=== PATIENT | female | born 1940 | race Caucasian/White ===

== ENCOUNTER 2017-07-03 21:16 | Emergency (ER) | payer OTHER ==
[~2017-07-03 21:16] MED LIST: ASPIR 8181 MG PO; BACTRIM1 TAB PO; BENAZEPRIL HYDR20 M1 PO; CIPRO500 MG PO; COLACE100 MG PO; FAMOTIDINE20 MG PO; FERROUS SULFAT325 M2 PO; FLA500 PO; FOLIC ACID1 MG PO; LAC PO; LAC30L PO; LASIX20 MG PO; OYSCO 500 + D 51 TAB PO; PRI20 PO; PROVENTIL0.09 MG/A1 INH; QVAR0.04 MG/Ac IH; TRE400 PO
[2017-07-03 22:29] LABS: CARBON DIOXIDE 28.9 mmol/L (21-32); CHLORIDE SERUM 104 mmol/L (98-107); CREATININE SERUM 0.9 mg/dL (0.6-1.0); GLUCOSE SERUM 111 mg/dL (74-106); POTASSIUM SERUM 4.1 mmol/L (3.5-5.1); SODIUM SERUM 140 mmol/L (136-145)
[2017-07-03 22:31] LABS: PLATELET COUNT 184 x10^3mcL (130-400)
[2017-07-03 22:34] LABS: RED CELL DISTRIBUTION WIDTH 16.3 % (11.5-14.5)
[2017-07-03 23:06] LABS: BAND NEUTROPHIL 1 % (0-10); MONOCYTE 4 % (0-7); SEGMENTED NEUTROPHILS 39 % (37-75)
[2017-07-03 23:10] LABS: PLATELET MORPHOLOGY FEW LARGE PLATELETS; rbc morphology (normal/abnorm) ABNORMAL (NORMAL)
[2017-07-04 01:03] VITALS: BP 141/71
== END 2017-07-04 00:45 | disposition home or self-care (01) ==
LOC: ED 21:16
PROVIDERS: Emergency Medicine Emergency Medical Services
DX: M17.12 Unilateral primary osteoarthritis, left knee (principal); I87.2 Venous insufficiency (chronic) (peripheral); I10 Essential (primary) hypertension; E11.9 Type 2 diabetes mellitus without complications; Z79.84 Long term (current) use of oral hypoglycemic drugs
CPT/HCPCS: 36415; Q0092

== ENCOUNTER 2018-05-25 22:10 | Emergency (ER) | payer OTHER ==
[~2018-05-25] VITALS: Ht 152.4 cm; Wt 73.0 kg
[2018-05-25 22:15] VITALS: Ht 152.4 cm; Wt 73.0 kg
[2018-05-26 00:34] VITALS: BP 132/52
== END 2018-05-26 00:34 | disposition home or self-care (01) ==
LOC: ED 22:10
DX: S76.012A Strain of muscle, fascia and tendon of left hip, initial encounter (principal); M25.521 Pain in right elbow; W01.0XXA Fall on same level from slipping, tripping and stumbling without subsequent striking against object, initial encounter; Y93.89 Activity, other specified; Y92.89 Other specified places as the place of occurrence of the external cause; Y99.8 Other external cause status

== ENCOUNTER 2019-02-17 19:03 | Emergency (ER) | payer MEDICARE, OTHER ==
[~2019-02-17] VITALS: Ht 152.4 cm; Wt 68.0 kg
[2019-02-17 19:08] VITALS: Ht 152.4 cm; Wt 68.0 kg
[2019-02-17 20:44] LABS: BASOPHIL % 0.5 % (0-2); PLATELET COUNT 179 x10^3mcL (130-400)
[2019-02-17 20:52] LABS: CALCIUM 9.7 mg/dL (8.5-10.1); CARBON DIOXIDE 30.3 mmol/L (21-32); CHLORIDE SERUM 104 mmol/L (98-107); CREATININE SERUM 0.9 mg/dL (0.6-1.0); GLUCOSE SERUM 128 mg/dL (74-106); SODIUM SERUM 141 mmol/L (136-145)
[2019-02-17 20:57] LABS: ALBUMIN 3.4 g/dL (3.4-5.0); ALKALINE PHOSPHATASE 87 U/L (46-116); ALT/SGPT 28 U/L (14-59); AST/SGOT 15 U/L (15-37); BILIRUBIN TOTAL 0.39 mg/dL (0.20-1.00); CHOLESTEROL 173 mg/dL (<200); LIPASE 289 IU/L (73-393); TOTAL PROTEIN, SERUM 6.8 g/dL (6.4-8.2); TRIGLYCERIDES 68 mg/dL (<150)
[2019-02-17 21:01] LABS: CHOLESTEROL/HDL RATIO 1.9; HDL CHOLESTEROL 89 mg/dL (40-60)
[2019-02-17 21:03] LABS: microscopic required? NO
[2019-02-17 21:08] LABS: FREE T4 1.17 ng/dL (0.76-1.46); FREE THYROXINE INDEX 2.3 ug/dL (1.4-4.5); T4(THYROXINE) 7.1 ug/dL (4.7-13.3)
[2019-02-17 21:11] LABS: T3 TOTAL 0.91 ng/mL
[2019-02-17 21:15] LABS: UA SPECIFIC GRAVITY <=1.005 (1.005-1.035); urine erythrocyte NEGATIVE (NEGATIVE)
[2019-02-17 23:55] VITALS: BP 126/66
== END 2019-02-17 23:55 | disposition home or self-care (01) ==
LOC: ED 19:03
PROVIDERS: Specialist
DX: S22.32XA Fracture of one rib, left side, initial encounter for closed fracture (principal); S80.02XA Contusion of left knee, initial encounter; S80.01XA Contusion of right knee, initial encounter; J45.909 Unspecified asthma, uncomplicated; I10 Essential (primary) hypertension; E11.9 Type 2 diabetes mellitus without complications; M81.0 Age-related osteoporosis without current pathological fracture; Z90.49 Acquired absence of other specified parts of digestive tract; Z98.890 Other specified postprocedural states; W18.39XA Other fall on same level, initial encounter; Y93.19 Activity, other involving water and watercraft; Y92.89 Other specified places as the place of occurrence of the external cause; Y99.8 Other external cause status
CPT/HCPCS: 83880; 84439; J2270; J2405; Q0092

== ENCOUNTER 2019-03-30 20:58 | Emergency (ER) | payer MEDICARE, OTHER ==
[~2019-03-30] VITALS: Ht 152.4 cm; Wt 70.3 kg
[2019-03-30 21:03] VITALS: Ht 152.4 cm; Wt 70.3 kg
[2019-03-31 00:56] VITALS: BP 123/67
== END 2019-03-31 00:56 | disposition home or self-care (01) ==
LOC: ED 20:58
DX: R21 Rash and other nonspecific skin eruption (principal); J98.01 Acute bronchospasm; I10 Essential (primary) hypertension; Z98.890 Other specified postprocedural states; Z90.49 Acquired absence of other specified parts of digestive tract

== ENCOUNTER 2019-10-23 16:42 | Emergency (ER) | payer MEDICARE, OTHER ==
[~2019-10-23] VITALS: Ht 160 cm; Wt 85.3 kg
[2019-10-23 16:48] VITALS: Ht 160 cm; Wt 85.3 kg
[2019-10-23 18:50] LABS: microscopic required? YES; urine erythrocyte TRACE (NEGATIVE)
[2019-10-23 19:35] VITALS: BP 147/61
== END 2019-10-23 19:36 | disposition home or self-care (01) ==
LOC: ED 16:42
PROVIDERS: Emergency Medicine
DX: M47.896 Other spondylosis, lumbar region (principal); I10 Essential (primary) hypertension; Z90.49 Acquired absence of other specified parts of digestive tract; Z98.890 Other specified postprocedural states
CPT/HCPCS: J1885